=== PATIENT | male | born 1975 | race African-American/Black ===

== ENCOUNTER 2018-01-03 16:22 | Emergency (ER) | payer OTHER ==
[~2018-01-03] VITALS: Ht 175.3 cm; Wt 77.1 kg
[2018-01-03] MEDS ORDERED: Acetaminophen 500mg (ES) tab ORAL ONE (16:45)
--- NOTE | 2018-01-03 16:59 | Diagnostic Imaging Report ---
Indication: Pain Findings: 3 views of the right wrist were obtained. No acute fractures, malalignment, erosions or periostitis are identified. Soft tissues are unremarkable. Impression: No acute findings.
[2018-01-03] MEDS ORDERED: IBUPROFEN600 MG ORAL (17:07)
--- NOTE | 2018-01-03 17:08 | Emergency Room Report ---
History of Present Illness General Chief Complaint: Upper Extremity Injury Source: Patient Present Illness HPI 42-year-old male patient presents the ER complaining of right wrist pain. Patient reports that he was at work and was moving a patient when the patient fell on his right wrist. Patient reports pain in right wrist. Patient denies tingling or loss of range of motion. Patient denies history of acute injury. Patient reports right-hand dominant. Patient has. Conjunctivae pink shortness breath. reports took Motrin a few hours ago. Allergies: Coded Allergies: No Known Allergies (Unverified , 01/03/18) Patient History Past Medical History: see triage record Reviewed Nursing Documentation: PMH: Agreed; PSxH: Agreed Nursing Documentation-PMH Past Medical History: No Stated History Review of Systems All Other Systems: negative except mentioned in HPI Physical Exam Vital Signs Date Time Temp Pulse Resp B/P (MAP) Pulse Ox O2 Delivery O2 Flow Rate FiO2 01/03/18 16:29 98.2 74 18 140/89 96 Room Air 98.2 Sp02 EP Interpretation: reviewed, normal General Appearance: well appearing, no apparent distress, alert, GCS 15, non- toxic Head: normocephalic, atraumatic Eyes: bilateral eye normal inspection, bilateral eye PERRL ENT: hearing grossly normal, normal pharynx, no angioedema, normal voice, uvula midline, moist mucus membranes Neck: full range of motion Respiratory: lungs clear, normal breath sounds, no rhonchi, no respiratory distress, no accessory muscle use, no wheezing, speaking full sentences Cardiovascular #1: regular rate, rhythm, no edema Cardiovascular #2: 2+ radial (R), 2+ radial (L) Musculoskeletal: back normal, digits/nails normal, gait/station normal, normal range of motion, other - NVI, sensation to light touch, capillary refill less than 2 seconds, no snuffbox tenderness, no deformity, patient able to make a fist, tender - ulnar aspect of her right wrist Neurologic: alert, oriented x3, responsive, motor strength/tone normal, sensory intact Psychiatric: mood/affect normal Skin: no rash Medical Decision Making PA Attestation Dr. Ortiz is my supervising Physician whom patient management has been discussed with. Diagnostic Impression: Primary Impression: Right wrist pain ER Course Pt. presents to the ED c/o right wrist pain Ddx considered but are not limited to fracture, sprain, strain, contusion, dislocation. No erythema, no warmth to touch, no fever, nontoxic appearing, low suspicion for septic joint. Vital signs: are WNL, pt. is afebrile Ordered X-ray and pain medication. ER COURSE on physical exam patient has full range of motion, complains of mild pain with radial deviation of right wrist. No deformity, no snuffbox tenderness. Provided with pain medication. An X-ray of the right wrist was ordered, results show no acute fracture, per the preliminary reading. Reports pain symptoms improved. Splint was applied to the right wrist and was checked afterwards by me showing good alignment and support with distal neurovascular functioning intact. Patient instructed on RICE method: rest, ice, compression, elevation. Patient instructed to WBAT completed Workmen's Compensation paperwork, return to modified work, reduced work activity of right hand. Follow-up with Workmen's Compensation physician for clearance to return to activities. Discuss referral to ortho/pain management/PT as needed. Discuss further imaging with MRI/CT as needed. DISCHARGE: -Rx provided for Ibuprofen for pain symptoms. At this time pt. is stable for d/c to home. Patient is resting comfortably, in no acute distress, nontoxic appearing, talking without difficulty. Will provide printed patient care instructions, and any necessary prescriptions. Patient instructed to follow with primary care provider in 3 - 5 days and to request further orthopedic follow-up. Care plan and follow up instructions have been discussed with the patient prior to discharge. Take medications as directed. Patient questions asked and answered. Patient reports understanding and agreement to treatment plan. ER precautions given, patient instructed to return to ER immediately for any new or worsening of symptoms. - Please note that this Emergency Department Report was dictated using [email or web address] worker apprentice technology software, occasionally this can lead to erroneous entry secondary to interpretation by the dictation equipment. Other X-Ray Diagnostic Results Other X-Ray Diagnostic Results : X-Ray ordered: right wrist # of Views/Limited Vs Complete: 3 View Indication: Pain EP Interpretation: Yes PA Xray: Interpretation reviewed, by supervising MD, and agrees with findings. Interpretation: no dislocation, no soft tissue swelling, no fractures Impression: No acute disease [facility] Scribe Text Orlin Vizcarra PA-C Last Vital Signs Date Time Temp Pulse Resp B/P (MAP) Pulse Ox O2 Delivery O2 Flow Rate FiO2 01/03/18 16:29 98.2 74 18 140/89 96 Room Air 98.2 Disposition: HOME, SELF-CARE Condition: Stable Scripts Ibuprofen* (MOTRIN*) 600 Mg Tablet 600 MG ORAL Q8H PRN for For Pain, #30 TAB 0 Refills Prov: Jorgito Vizcarra 01/03/18 Referrals: [facility] (PCP) Patient Instructions: Wrist Pain, [id number] Additional Instructions: Patient instructed to follow up with primary care provider and discuss further referral to orthopedics. Patient instructed on RICE method: rest, ice, compression, elevation. Patient instructed to WBAT. Take medications as directed. Patient questions asked and answered. ER precautions given, patient instructed to return to ER immediately for any new or worsening of symptoms. Jorgito Vizcarra January 03, 2018 17:08
[2018-01-03 17:10] VITALS: BP 140/89
== END 2018-01-03 17:15 | disposition home or self-care (01) ==
LOC: EMR 16:56
DX: M25.531 Pain in right wrist (principal)
CPT/HCPCS: 99283